=== PATIENT | female | born 1950 | race Caucasian/White ===

== ENCOUNTER 2024-12-28 19:31 | Emergency (ER) | payer MEDICARE, SELFPAY ==
[2024-12-28 19:38] VITALS: BP 143/89
[2024-12-28 21:57] VITALS: BP 155/86
[2024-12-28 22:02] VITALS: BP 155/86; BMI 24.2
--- NOTE | 2024-12-28 23:35 | ED.GENMED ---
History of Present Illness
General
Chief Complaint: Nose Bleed
Source: patient
Exam Limitations: none
Time Seen by Provider: 12/28/24 21:58
Nursing documentation reviewed up to this point in time: agreed with
History of Present Illness
History of Present Illness:
74-year-old female past medical history of A-fib on Eliquis, hypertension hyperlipidemia presenting to the emergency department with concerns of left-sided nosebleed over the past few hours. Trouble controlling this at home. Denies any
lightheadedness chest pain shortness of breath.
Review of Systems
Review of Systems
Allergies reviewed?: Yes
All Other Systems: ROS reviewed and negative except as documented in HPI and ROS
Phy Exam
Physical Exam
Physical Exam:
GENERAL: Alert , in no apparent distress
EYE: pupils equal and reactive
NECK: Supple, no significant adenopathy.
ENT: Small clotted superficial vessel to the left nasal septum no active bleeding. o/p clr, mmm.
CARDIAC: Regular rate and rhythm .
LUNGS: Clear breath sounds bilaterally, no acute respiratory distress, no wheezes/rales/rhonchi
ABDOMEN: Soft, without focal tenderness, no r/g, no cvat
NEUROLOGICAL: Alert and oriented, no focal neuro deficits
SKIN: Warm and dry, skin intact.
MUSCULOSKELETAL: No edema, well perfused.
PSYCH: Normal and appropriate interaction.
Course
Vital Signs
Initial and Last Documented VS:
Initial Vital Signs
Temp Pulse Resp BP Pulse Ox
98.5 F 79 18 143/89 98
12/28/24 19:38 12/28/24 19:38 12/28/24 19:38 12/28/24 19:38 12/28/24 19:38
Last Documented Vital Signs
Temp Pulse Resp BP Pulse Ox
98.5 F 80 18 155/86 97
12/28/24 19:38 12/28/24 22:02 12/28/24 22:02 12/28/24 22:02 12/28/24 23:35
Procedures
Nosebleed
Drug treatment: Neosynephrine
Treatment: local pressure applied and Silver nitrate cautery
Post treatment bleeding: none- good control
MDM/Problems Addressed
MDM/Problems Addressed:
74-year-old female presenting to the emergency department today with concerns of a nosebleed intermittently throughout the day today. Here bleeding seems to be controlled after pressure. Silver nitrate was applied no ongoing bleeding here for
multiple hours stable for close outpatient follow-up. Return precautions given.
*Pulse Oximetry
SaO2: 97
Oxygen Mode of Delivery: Room air
Patient hypoxic: no (97)
*Critical Care Note
Total Time (30-74mins, 75-104mins- exclusive of procedures): Not Applicable
ED Attending Note
-
Portions of this chart may have been created with voice recognition software.� Occasional wrong word or��sound alike� substitutions may have occurred due to the inherent limitations of voice recognition software.
Discharge Plan
Departure
Patient Disposition: Home (Routine Discharge)
Date of Disposition: 12/28/24
Time of Disposition: 23:35
Patient with high blood pressure during this ER visit?: No
Condition: Good
Covid-19: Not Applicable
Discharge Problem:
Acute anterior epistaxis
Instructions: Nosebleeds (DC)
Referrals:
JULI CONNELLY RN [Family Provider, Family Practice]
Activity Restrictions/Additional Instructions:
You came to the emergency department today with concerns of a nosebleed. Please follow-up closely as an outpatient return for any worsening, new or concerning symptoms.
Interventions
Interventions:
*Risk Screen - Suicide Last Done: 12/28/24 19:38
*General Assessment Last Done: 12/28/24 19:38
*Neglect/Abuse Screening Last Done: 12/28/24 19:38
*ED- Fall Risk Assessment Last Done: 12/28/24 19:38
*ED COVID-19 Vaccine History Last Done: 12/28/24 19:38
*Nursing Disposition Last Done: 12/28/24 23:40
ED-EENT Assessment Last Done: 12/28/24 22:09
Discharge Date and Time
Discharge Date/Time: 12/28/24 23:42
Print Language: CENTRAL AFRICAN
== END 2024-12-28 23:42 | disposition home or self-care (01) ==
LOC: EMR 19:31
PROVIDERS: EMERGENCY PHYSICIAN Emergency Medicine; FAMILY PHYSICIAN Nurse Practitioner Family
DX: R04.0 Epistaxis (principal); I48.91 Unspecified atrial fibrillation; I10 Essential (primary) hypertension; E78.5 Hyperlipidemia, unspecified; Z79.01 Long term (current) use of anticoagulants
CPT/HCPCS: 99282; 30901